=== PATIENT | male | born 1970 | race Caucasian/White ===

== ENCOUNTER 2018-09-23 09:29 | Outpatient (CLI) | payer OTHER ==
[~2018-09-23 09:29] MED LIST: KETO10TA2 PO; SINGULAIR5 MG; VYTORIN 10-20 M1 TAB
== END 2018-09-23 09:45 | disposition home or self-care (01) ==
LOC: RAD 09:29
DX: R06.02 Shortness of breath (principal); I11.9 Hypertensive heart disease without heart failure

== ENCOUNTER 2018-10-24 09:32 | Outpatient (CLI) | payer OTHER | END 2018-10-24 09:34 | disposition home or self-care (01) | LOC: NUCLEAR 09:32 | DX: I11.9 Hypertensive heart disease without heart failure (principal) ==

== ENCOUNTER → 2023-11-01 08:19 | Outpatient (CLI) | payer OTHER | END | disposition home or self-care (01) | LOC: LAB 08:19 | PROVIDERS: ATTEND Urology | DX: R97.20 Elevated prostate specific antigen [PSA] (principal) ==

== ENCOUNTER 2023-11-29 07:16 | Outpatient (CLI) | payer OTHER | END 2023-11-29 07:26 | disposition home or self-care (01) | LOC: SONOGRAMA 07:16 | PROVIDERS: ATTEND Urology | DX: N40.1 Benign prostatic hyperplasia with lower urinary tract symptoms (principal); R97.20 Elevated prostate specific antigen [PSA] ==